=== PATIENT | female | born 1955 | race Caucasian/White ===

== ENCOUNTER 2017-09-04 11:33 | Day surgery (SDC) | payer OTHER ==
[2017-09-04] MEDS ORDERED: Lactated Ringers 1,000 ML IV SCH (12:45)
--- NOTE | 2017-09-04 13:12 | PCM.PREANE ---
Preanesthetic Assessment - Anesthesia/Transfusion/Family Hx Anesthesia History: Prior Anesthesia Reaction Other Type of Anesthesia Reaction Comment: "Coded" during back surgery Family History of Anesthesia Reaction: No Transfusion History: Prior Transfusion Without Reaction Intubation History: Unknown - Review of Systems General: No Symptoms Pulmonary: No Symptoms Cardiovascular: No Symptoms Gastrointestinal: No Symptoms, Other (colon polyps on colonoscopy 3 years ago) Neurological: No Symptoms Other: Reports: None - Physical Assessment O2 Sat by Pulse Oximetry: 98 Respiratory Rate: 16 Vital Signs: Last Vital Signs Temp 36.6 C 09/04/17 12:41 Pulse 67 09/04/17 12:41 Resp 16 09/04/17 12:41 BP 124/60 09/04/17 12:41 Pulse Ox 98 09/04/17 12:41 Height: 1.65 m Weight: 69.4 kg ASA Class: 2 Mental Status: Alert & Oriented x3 Airway Class: Mallampati = 2 Dentition: Reports: Normal Dentition, Partial (upper- removed) Thyro-Mental Finger Breadths: 3 Mouth Opening Finger Breadths: 3 ROM/Head Extension: Full Lungs: Clear to Auscultation, Normal Respiratory Effort Cardiovascular: Regular Rate, Regular Rhythm - Allergies Allergies/Adverse Reactions: Allergies Allergy/AdvReac Type Severity Reaction Status Date / Time cephalexin monohydrate Allergy Itching Verified 08/30/17 14:17 [From Keflex] hydrocodone Allergy Hallucinati Verified 08/30/17 14:17 ons - Blood Blood Available: No - Anesthesia Plan Pre-Op Medication Ordered: None - Acknowledgements Anesthesia Type Planned: MAC Pt an Appropriate Candidate for the Planned Anesthesia: Yes Alternatives and Risks of Anesthesia Discussed w Pt/Guardian: Yes Pt/Guardian Understands and Agrees with Anesthesia Plan: Yes PreAnesthesia Questionnaire Other HEENT History: wears glasses, has upper denture Cardiovascular History: Reports: Hypertension, Prior Cardiac Arrest Other Cardiovascular History: states cardiac arrest during back surgery, no explanation given as to cause Respiratory History: Reports: COPD (mild/moderate), Sleep Apnea Other Respiratory History: has not used CPAP recently Gastrointestinal History: Reports: Colon Polyp, GERD (with esophagitis) Other Gastrointestinal History: Gastrorrhaphy for perforation of ulcer Musculoskeletal History: Reports: Arthritis, Back Pain, Chronic Other Musculoskeletal History: Low back pain Neurological History: Reports: Other (See Below) Other Neuro History: restless leg syndrome Hematologic History: Reports: Anemia, Blood Transfusion(s) Other Hematologic History: had blood transfusion last January for low Hgb - Past Surgical History HEENT Surgical History: Reports: Tonsillectomy GI Surgical History: Reports: Bariatric Procedure, Cholecystectomy, Colonoscopy (x3), Other (See Below) Other GI Surgeries/Procedures: Gastorrhaphy for perforated ulcer Neurological Surgical History: Reports: Lumbar Spine Other Neurological Surgeries/Procedures: had insertion of spinal cord stimulator , was removed during "back surgery"...wires remain Musculoskeletal Surgical History: Reports: Carpal Tunnel - SUBSTANCE USE Smoking Status *Q: Current Every Day Smoker (5-6 cigarettes per day) Tobacco Use Within Last Twelve Months: Cigarettes Days Per Week of Alcohol Use: 7 Number of Drinks Per Day: 1 Total Drinks Per Week: 7 Recreational Drug Use History: No - HOME MEDS Home Medications: Home Meds Folic Acid/Vitamin B Comp W-C [Folbee Plus] 1 tab PO DAILY 03/04/15 [History] Pantoprazole Sodium 1 tab PO DAILY 03/04/15 [History] Albuterol Sulfate [Proair Hfa] 1 - 2 puff INH ASDIRECTED PRN 08/30/17 [History] Amitriptyline HCl 50 mg PO DAILY 08/30/17 [History] Calcium Carbonate/Vitamin D3 [Calcium 500 + Vit D Caplet] 1 tab PO DAILY [History] Fluticasone/Salmeterol [Advair 250-50 Diskus] 1 puff INH BID 08/30/17 [History] Losartan/Hydrochlorothiazide [Losartan-HCTZ 100-12.5 MG] 1 tab PO DAILY [History] - CURRENT (IN HOUSE) MEDS Current Meds: Current Medications Lactated Ringer's (Ringers, Lactated) 1,000 mls @ 125 mls/hr IV ASDIRECTED CARLO Last Admin: 09/04/17 12:49 Dose: 125 mls/hr
[2017-09-04] MEDS ORDERED: Propofol 200 MG/20 ML SDV ONE ×2 (13:40→14:12)
[2017-09-04] MEDS ORDERED: Lidocaine 2% 5 ML SDV ONE (13:40)
[2017-09-04] MEDS ORDERED: fentaNYL 100 MCG/2 ML SDV ONE (13:41)
[2017-09-04] MEDS ORDERED: Midazolam 1 MG/ML 2 ML SDV ONE (13:41)
--- NOTE | 2017-09-04 14:39 | PCM.OPNOTE ---
- General Post-Op/Procedure Note Date of Surgery/Procedure: 09/04/17 Operative Procedure(s): Diagnostic colonoscopy Findings: Mass in the ascending colon proximal to hepatic flexure at 110cm. Encompassed 1/ 4 of lumen and appeared to be invading the mucosa. Too large to safely remove so biopsies taken. Small hepatic flexure and sigmoid colon polyp. ~4mm mass in mid transverse colon Pre Op Diagnosis: History of tubulovillous adenoma Post-Op Diagnosis: Ascending colon mass, transverse colon polyp, sigmoid colon polyp, and hepatic flexure polyp Anesthesia Technique: [facility] [place] Primary Surgeon: Linda Amezquita Condition: Good
[2017-09-04 15:01] VITALS: BP 131/70
--- NOTE | 2017-09-04 15:48 | PCM.POSTAN ---
POST ANESTHESIA ASSESSMENT - MENTAL STATUS Mental Status: Alert, Oriented - RESPIRATORY Respiratory Status: Respiratory Rate WNL, Airway Patent, O2 Saturation Stable - CARDIOVASCULAR CV Status: Pulse Rate WNL, Blood Pressure Stable - GASTROINTESTINAL GI Status: No Symptoms - POST OP HYDRATION Hydration Status: Adequate & Stable
--- NOTE | 2017-09-04 15:48 | PCM48HPAN ---
Post Anesthesia Note - EVALUATION WITHIN 48HRS OF ANESTHETIC Vital Signs in Normal Range: Yes Patient Participated in Evaluation: Yes Respiratory Function Stable: Yes Airway Patent: Yes Cardiovascular Function Stable: Yes Hydration Status Stable: Yes Pain Control Satisfactory: Yes Nausea and Vomiting Control Satisfactory: Yes Mental Status Recovered: Yes
--- NOTE | 2017-09-04 20:47 | OR ---
SURGEON: MATEUS PARKER MD DATE OF PROCEDURE: 09/04/2017 PREOPERATIVE DIAGNOSIS: History of colon polyps. POSTOPERATIVE DIAGNOSES: 1. Transverse colon polyp. 2. Sigmoid colon polyp. 3. Hepatic flexure polyp. 4. Ascending colon mass. 5. Diverticulosis. PROCEDURE PERFORMED: Diagnostic colonoscopy. ANESTHESIA: MAC. INSTRUMENT USED: Olympus colonoscope. EXTENT OF EXAM: To the cecum. PREPARATION: Good. LIMITATIONS: None. INDICATION FOR EXAMINATION: The patient is a 62-year-old female, who underwent a colonoscopy 3 years ago and was found to have a tubulovillous adenoma in the ascending portion of her colon. She is due for a repeat colonoscopy. The patient and I discussed the procedure as well as expected perioperative course. We discussed the risks, including bleeding, infection, or damage to surrounding structures, including perforation. The patient verbalized understanding and wishes to proceed. PROCEDURE IN DETAIL: The patient was brought into the endoscopy suite and placed in the left lateral decubitus position. A time-out was completed verifying the patient's name, age, date of , allergies, and procedure to be performed. Monitored anesthesia care was induced and continuous oxygen was provided via nasal cannula throughout the procedure. After adequate sedation was achieved, a digital rectal exam was performed. This exam was within normal limits. A well lubricated colonoscope was inserted into the rectum and advanced under direct visualization to the level of cecum. The cecum was identified by both visual and anatomic landmarks. A photograph was taken of the cecal cap as well as with the scope retroflexed within the cecum. The scope was then straightened out and fully withdrawn while examining the color, texture, anatomy, and integrity of the mucosa from the cecum to the anal canal. The patient was found to have an irregular sessile mass in the distal ascending colon, proximal to the splenic flexure. The mass encompassed about a quarter of the lumen and I did not feel I could safely remove it. Biopsies were taken and sent labeled as ascending colon mass. The mass was at 110 cm via the scope. The mass was then inked to allow identification for the future. The patient was also found to have a 1 mm polyp at the hepatic flexure and approximately 4 mm polyp in the midtransverse colon and another 1-2 mm polyp in the sigmoid colon. These were removed using a cold biopsy forceps. The patient was noted to have diverticulosis in the distal aspect of her colon. The scope was then brought into the rectum and retroflexed to allow visualization of the anal canal opening. This appeared normal and a photograph was taken. The scope was then straightened out and fully withdrawn. The cecum to anus time was greater than 6 minutes. The patient tolerated procedure well and was taken to PACU in stable condition. ENDOSCOPIC DIAGNOSES: 1. Transverse colon polyp. 2. Hepatic flexure polyp. 3. Sigmoid colon polyp. 4. Ascending colon mass. 5. Diverticulosis. RECOMMENDATIONS: We will get a CEA in the PACU. We will follow up on the biopsy results. If this is a large tubulovillous adenoma, I will send the patient to Dr. Palacios in [place] for consultation. If this is the cancer, we will begin staging and workup. MELISSA ARTHUR /[id number]
== END 2017-09-04 15:15 | disposition home or self-care (01) ==
LOC: MW.SDS 11:33
PROVIDERS: ATTEND Surgery
DX: Z12.11 Encounter for screening for malignant neoplasm of colon (principal); K57.30 Diverticulosis of large intestine without perforation or abscess without bleeding; D12.2 Benign neoplasm of ascending colon; D12.3 Benign neoplasm of transverse colon; D12.5 Benign neoplasm of sigmoid colon; R05 Cough; R07.9 Chest pain, unspecified; M54.31 Sciatica, right side; J44.9 Chronic obstructive pulmonary disease, unspecified; K21.9 Gastro-esophageal reflux disease without esophagitis; I10 Essential (primary) hypertension; G89.29 Other chronic pain; G47.01 Insomnia due to medical condition; D50.9 Iron deficiency anemia, unspecified; G25.81 Restless legs syndrome; G47.30 Sleep apnea, unspecified; M19.90 Unspecified osteoarthritis, unspecified site; F17.210 Nicotine dependence, cigarettes, uncomplicated; Z86.010 Personal history of colon polyps; Z98.84 Bariatric surgery status; Z88.6 Allergy status to analgesic agent; Z88.8 Allergy status to other drugs, medicaments and biological substances; Z79.899 Other long term (current) drug therapy; Z90.49 Acquired absence of other specified parts of digestive tract; Z90.89 Acquired absence of other organs; Z98.890 Other specified postprocedural states
CPT/HCPCS: 36415; 45378; 82378; 88305; J2250; J3010; J7120; 00810; J2704

== ENCOUNTER 2019-04-08 09:48 | Observation (INO) | payer OTHER ==
[2019-04-08] MEDS ORDERED: Aspirin 81 MG Tab.Chew PO ONE (09:54)
--- NOTE | 2019-04-08 10:31 | EDM.PDOC ---
ED HPI GENERAL MEDICAL PROBLEM - General Chief Complaint: Cardiovascular Problem Stated Complaint: CHEST PAIN AND PAIN IN LT ARM Time Seen by Provider: 04/08/19 10:20 - History of Present Illness INITIAL COMMENTS - FREE TEXT/NARRATIVE: 63 y/o female here from Dr. Armendariz's clinic. Patient states that for the past 1 week she has been having some left chest pain and left shoulder pain. pain worse with deep inspiration. Describes pain as pleuritic. Some dyspnea. No productive cough. No oxygen at home. She is an active smoker. No fevers, nausea , vomiting. No abdominal pain, dysuria, diarrhea. States she had an angiogram about 6 years ago which was normal at [facility]. left chest, left arm, Pain Score (Numeric/FACES): 7 - Related Data Allergies Allergy/AdvReac Type Severity Reaction Status Date / Time cephalexin monohydrate Allergy Itching Verified 04/08/19 09:52 [From Keflex] hydrocodone Allergy Hallucinati Verified 04/08/19 09:52 ons Home Meds: Home Meds Folic Acid/Vitamin B Comp W-C [Folbee Plus] 1 tab PO DAILY 03/04/15 [History] Pantoprazole Sodium 1 tab PO DAILY 03/04/15 [History] Albuterol Sulfate [Proair Hfa] 1 - 2 puff INH ASDIRECTED PRN 08/30/17 [History] Calcium Carbonate/Vitamin D3 [Calcium 500 + Vit D Caplet] 1 tab PO DAILY [History] Fluticasone/Salmeterol [Advair 250-50 Diskus] 1 puff INH BID 08/30/17 [History] Losartan/Hydrochlorothiazide [Losartan-HCTZ 100-12.5 MG] 1 tab PO DAILY [History] Past Medical History Other HEENT History: wears glasses, has upper denture Cardiovascular History: Reports: Hypertension Other Cardiovascular History: palpitations Respiratory History: Reports: COPD, Sleep Apnea Other Respiratory History: has not used CPAP recently Gastrointestinal History: Reports: Colon Polyp, GERD Other Gastrointestinal History: Gastrorrhaphy for perforation of ulcer Musculoskeletal History: Reports: Arthritis, Back Pain, Chronic Other Musculoskeletal History: Low back pain Neurological History: Reports: Other (See Below) Other Neuro History: restless leg syndrome Hematologic History: Reports: Anemia, Blood Transfusion(s) Other Hematologic History: had blood transfusion last January for low Hgb - Past Surgical History HEENT Surgical History: Reports: Tonsillectomy GI Surgical History: Reports: Bariatric Procedure, Cholecystectomy, Colonoscopy , Other (See Below) Other GI Surgeries/Procedures: Gastorrhaphy for perforated ulcer Neurological Surgical History: Reports: Lumbar Spine Other Neurological Surgeries/Procedures: had insertion of spinal cord stimulator , was removed during "back surgery"...wires remain Musculoskeletal Surgical History: Reports: Carpal Tunnel Social & Family History - Family History Endocrine/Metabolic: Reports: Diabetes, Type I Oncologic: Reports: Lung, Prostate - Tobacco Use Smoking Status *Q: Current Every Day Smoker Years of Tobacco use: 45 Packs/Tins Daily: 0.5 - Recreational Drug Use Recreational Drug Use: No ED ROS GENERAL - Review of Systems Review Of Systems: ROS reveals no pertinent complaints other than HPI. ED EXAM, GENERAL - Physical Exam Exam: See Below General Appearance: Alert, WD/WN, No Apparent Distress, Anxious Respiratory/Chest: No Respiratory Distress, Lungs Clear, Normal Breath Sounds, Chest Non-Tender, Prolonged Expiration. No: Crackles, Rhonchi, Wheezing Cardiovascular: Regular Rate, Rhythm, No Edema, No JVD, No Murmur GI/Abdominal: Normal Bowel Sounds, Soft, Non-Tender Back Exam: Normal Inspection, Full Range of Motion, Other (previous surgical wounds) Neurological: Alert, Oriented Course - Vital Signs Text/Narrative:: troponin X1 negative. Labs unremarkable. Discussed case with Dr. Londono who has accepted the patient as observation. Last Recorded V/S: Last Vital Signs Temp 36.1 C 04/08/19 09:50 Pulse 74 04/08/19 09:50 Resp 18 04/08/19 09:50 BP 139/69 04/08/19 09:50 Pulse Ox 99 04/08/19 09:50 - Orders/Labs/Meds Orders: Active Orders 24 hr Category Date Time Status Admission Status [Patient Status] [ADT] Stat ADT 04/08/19 11:19 Active EKG Documentation Completion [RC] STAT Care 04/08/19 09:54 Active UA RFX HERMELINDO AND CULT IF INDIC [URIN] Stat Lab 04/08/19 10:50 Received Labs: Laboratory Tests 04/08/19 04/08/19 04/08/19 Range/Units 10:00 10:00 10:00 WBC 7.33 (4.0-11.0) K/uL RBC 4.49 (4.30-5.90) M/uL Hgb 13.9 (12.0-16.0) g/dL Hct 41.8 (36.0-46.0) % MCV 93.1 (80.0-98.0) fL MCH 31.0 (27.0-32.0) pg MCHC 33.3 (31.0-37.0) g/dL RDW Std Deviation 52.7 (28.0-62.0) fl RDW Coeff of Syeda 16 H (11.0-15.0) % Plt Count 262 (150-400) K/uL MPV 9.10 (7.40-12.00) fL Neut % (Auto) 54.9 (48.0-80.0) % Lymph % (Auto) 33.6 (16.0-40.0) % Bracken % (Auto) 7.0 (0.0-15.0) % Eos % (Auto) 3.5 (0.0-7.0) % Baso % (Auto) 1.0 (0.0-1.5) % Neut # (Auto) 4.0 (1.4-5.7) K/uL Lymph # (Auto) 2.5 H (0.6-2.4) K/uL Bracken # (Auto) 0.5 (0.0-0.8) K/uL Eos # (Auto) 0.3 (0.0-0.7) K/uL Baso # (Auto) 0.1 (0.0-0.1) K/uL Nucleated RBC % 0.0 /100WBC Nucleated RBCs # 0 K/uL INR 0.96 Sodium 138 (136-145) mmol/L Potassium 3.9 (3.5-5.1) mmol/L Chloride 102 (98-107) mmol/L Carbon Dioxide 26.8 (21.0-32.0) mmol/L BUN 20 H (7.0-18.0) mg/dL Creatinine 0.9 (0.6-1.0) mg/dL Est Cr Clr Drug Dosing 56.82 mL/min Estimated GFR (MDRD) > 60.0 ml/min Glucose 114 H (74-106) mg/dL Calcium 9.6 (8.5-10.1) mg/dL Total Bilirubin 0.3 (0.2-1.0) mg/dL AST 26 (15-37) IU/L ALT 31 (14-63) IU/L Alkaline Phosphatase 114 (46-116) U/L Troponin I < 0.050 (0.000-0.056) ng/mL Total Protein 7.3 (6.4-8.2) g/dL Albumin 4.2 (3.4-5.0) g/dL Globulin 3.1 (2.6-4.0) g/dL Albumin/Globulin Ratio 1.4 (0.9-1.6) Meds: Medications Discontinued Medications Generic Name Dose Route Start Last Admin Trade Name Madelin PRN Reason Stop Dose Admin Aspirin 324 mg 04/08/19 09:54 04/08/19 10:11 Aspirin PO 04/08/19 09:55 324 mg ONETIME ONE Administration Departure - Departure Time of Disposition: 11:23 Disposition: Refer to Observation Clinical Impression: Chest pain Referrals: PCP,Unknown [Primary Care Provider] - Forms: ED Department Discharge - My Orders Last 24 Hours: My Active Orders 04/08/19 11:19 Admission Status [Patient Status] [ADT] Stat - Assessment/Plan Last 24 Hours: My Active Orders 04/08/19 11:19 Admission Status [Patient Status] [ADT] Stat
--- NOTE | 2019-04-08 10:40 | CR ---
EXAMINATION: Portable chest radiograph. HISTORY: Pain. FINDINGS: The trachea is midline. The cardiomediastinal silhouette is within normal limits. No pulmonary infiltrates, effusions or pneumothorax. Osseous structures appear unremarkable. Mild degenerative changes within the shoulders bilaterally. IMPRESSION: No acute cardiopulmonary process.
[2019-04-08 11:06] LABS: CHLORIDE,CL 102 mmol/L (98-107); SODIUM,NA 138 mmol/L (136-145)
--- NOTE | 2019-04-08 11:48 | PCM.HP ---
<Katarina Garcia M - Last Filed: 04/08/19 12:11> H&P History of Present Illness - General Date of Service: 04/08/19 Admit Problem/Dx: Admission Diagnosis/Problem Admission Diagnosis/Problem Chest pain Source of Information: Patient History Limitations: Reports: No Limitations - History of Present Illness Initial Comments - Free Text/Narative: This 63 year old female with pmh of HTN, tobacco abuse, back pain presented to the ED with complaints of L arm and L shoulder pain. She reports this started about 1 week ago. She reports it is painful to move her arm and too take a deep breath. The pain is in her L shoulder as well as upper trapezius muscle. No sweating or shortness of breath. No nausea or vomiting. Around this time she was painting alot and also had a fall, she is unsure how she landed as she reports she was preoccupied wit not falling on her grandchild. She denies fevers , chills or palpitations. She denies abdominal pain, nausea or vomiting. No urinary symptoms and no focal neurologic deficits. She reports she smokes less than 1/2 ppd, social alcohol use and no recreational drug use. She reports she had an angiogram a few years go with Dr Rene and it was clear as well as a stress test with Dr Kaur, which was negative, but was many years ago. In the ED labwork wnl. Troponin negative. EKG SR with no acute ST changes. CXR negative. VS stable. She was given ASA on arrival. She will be admitted for atypical chest pain. left chest, left arm, Pain Score (Numeric/FACES): 7 - Related Data Allergies/Adverse Reactions: Allergies Allergy/AdvReac Type Severity Reaction Status Date / Time cephalexin monohydrate Allergy Itching Verified 04/08/19 09:52 [From Keflex] hydrocodone Allergy Hallucinati Verified 04/08/19 09:52 ons Home Medications: Home Meds Folic Acid/Vitamin B Comp W-C [Folbee Plus] 1 tab PO DAILY 03/04/15 [History] Pantoprazole Sodium 1 tab PO DAILY 03/04/15 [History] Albuterol Sulfate [Proair Hfa] 1 - 2 puff INH ASDIRECTED PRN 08/30/17 [History] Calcium Carbonate/Vitamin D3 [Calcium 500 + Vit D Caplet] 1 tab PO DAILY [History] Fluticasone/Salmeterol [Advair 250-50 Diskus] 1 puff INH BID 08/30/17 [History] Losartan/Hydrochlorothiazide [Losartan-HCTZ 100-12.5 MG] 1 tab PO DAILY [History] Past Medical History Other HEENT History: wears glasses, has upper denture Cardiovascular History: Reports: Hypertension. Denies: Afib, Blood Clots/VTE/ DVT, CAD Other Cardiovascular History: palpitations Respiratory History: Reports: COPD, Sleep Apnea Other Respiratory History: has not used CPAP recently Gastrointestinal History: Reports: Colon Polyp, GERD Other Gastrointestinal History: Gastrography for perforation of ulcer Musculoskeletal History: Reports: Arthritis, Back Pain, Chronic Other Musculoskeletal History: Low back pain Neurological History: Reports: Other (See Below) Other Neuro History: restless leg syndrome Endocrine/Metabolic History: Reports: None. Denies: Diabetes, Type II, Hypothyroidism Hematologic History: Reports: Anemia, Blood Transfusion(s) Other Hematologic History: had blood transfusion last January for low Hgb - Past Surgical History HEENT Surgical History: Reports: Tonsillectomy GI Surgical History: Reports: Bariatric Procedure, Cholecystectomy, Colonoscopy , Other (See Below) Other GI Surgeries/Procedures: Gastorrhaphy for perforated ulcer Neurological Surgical History: Reports: Lumbar Spine Other Neurological Surgeries/Procedures: had insertion of spinal cord stimulator , was removed during "back surgery"...wires remain Musculoskeletal Surgical History: Reports: Carpal Tunnel Social & Family History - Family History Endocrine/Metabolic: Reports: Diabetes, Type I Oncologic: Reports: Lung, Prostate - Tobacco Use Smoking Status *Q: Current Every Day Smoker Years of Tobacco use: 45 Packs/Tins Daily: 0.5 - Alcohol Use Alcohol Use History: No Alcohol Use Frequency: Socially - Recreational Drug Use Recreational Drug Use: No - Living Situation & Occupation Living situation: Reports: Occupation: Employed H&P Review of Systems - Review of Systems: Review Of Systems: See Below General: Reports: No Symptoms. Denies: Fever, Chills, Malaise, Weakness HEENT: Reports: Post Nasal Drip. Denies: Headaches, Sore Throat, Vertigo Pulmonary: Reports: Pleuritic Chest Pain (with deep breath), Cough, Sputum ( clear to yellow). Denies: Shortness of Breath Cardiovascular: Reports: Chest Pain (L lateral chest, just below axilla and L shoulder) Gastrointestinal: Reports: No Symptoms. Denies: Abdominal Pain, Black Stool, Bloody Stool, Nausea, Vomiting Genitourinary: Reports: No Symptoms. Denies: Dysuria, Frequency, Burning, Incontinence, Flank Pain Musculoskeletal: Reports: Shoulder Pain (L shoulder) Skin: Reports: No Symptoms Psychiatric: Reports: No Symptoms Neurological: Reports: No Symptoms Hematologic/Lymphatic: Reports: No Symptoms Immunologic: Reports: No Symptoms Exam - Exam Exam: See Below - Vital Signs Vital Signs: Last Vital Signs Temp 96.9 F 04/08/19 09:50 Pulse 74 04/08/19 09:50 Resp 18 04/08/19 09:50 BP 139/69 04/08/19 09:50 Pulse Ox 99 04/08/19 09:50 Weight: 63.957 kg - Exam General: Alert, Oriented, Cooperative Lungs: Clear to Auscultation, Normal Respiratory Effort Cardiovascular: Regular Rate, Regular Rhythm GI/Abdominal Exam: Normal Bowel Sounds, Soft, Non-Tender Back Exam: Normal Inspection, Full Range of Motion, Other (tenderness to L lateral chest wall, upper trapezius and L shoulder. Tenderness increases with palpation, which is reproducing pain. ) Extremities: Normal Inspection, Normal Range of Motion, Non-Tender, No Pedal Edema Neuro Extensive - Mental Status: Alert, Oriented x3 Neuro Extensive - Motor, Sensory, Reflexes: CN II-XII Intact Psychiatric: Alert, Normal Affect, Normal Mood - Patient Data Lab Results Last 24 hrs: Laboratory Results - last 24 hr 04/08/19 04/08/19 04/08/19 Range/Units 10:00 10:00 10:00 WBC 7.33 (4.0-11.0) K/uL RBC 4.49 (4.30-5.90) M/uL Hgb 13.9 (12.0-16.0) g/dL Hct 41.8 (36.0-46.0) % MCV 93.1 (80.0-98.0) fL MCH 31.0 (27.0-32.0) pg MCHC 33.3 (31.0-37.0) g/dL RDW Std Deviation 52.7 (28.0-62.0) fl RDW Coeff of Syeda 16 H (11.0-15.0) % Plt Count 262 (150-400) K/uL MPV 9.10 (7.40-12.00) fL Neut % (Auto) 54.9 (48.0-80.0) % Lymph % (Auto) 33.6 (16.0-40.0) % [place] % (Auto) 7.0 (0.0-15.0) % Eos % (Auto) 3.5 (0.0-7.0) % Baso % (Auto) 1.0 (0.0-1.5) % Neut # (Auto) 4.0 (1.4-5.7) K/uL Lymph # (Auto) 2.5 H (0.6-2.4) K/uL [place] # (Auto) 0.5 (0.0-0.8) K/uL Eos # (Auto) 0.3 (0.0-0.7) K/uL Baso # (Auto) 0.1 (0.0-0.1) K/uL Nucleated RBC % 0.0 /100WBC Nucleated RBCs # 0 K/uL INR 0.96 Sodium 138 (136-145) mmol/L Potassium 3.9 (3.5-5.1) mmol/L Chloride 102 (98-107) mmol/L Carbon Dioxide 26.8 (21.0-32.0) mmol/L BUN 20 H (7.0-18.0) mg/dL Creatinine 0.9 (0.6-1.0) mg/dL Est Cr Clr Drug Dosing 56.82 mL/min Estimated GFR (MDRD) > 60.0 ml/min Glucose 114 H (74-106) mg/dL Calcium 9.6 (8.5-10.1) mg/dL Total Bilirubin 0.3 (0.2-1.0) mg/dL AST 26 (15-37) IU/L ALT 31 (14-63) IU/L Alkaline Phosphatase 114 (46-116) U/L Troponin I < 0.050 (0.000-0.056) ng/mL Total Protein 7.3 (6.4-8.2) g/dL Albumin 4.2 (3.4-5.0) g/dL Globulin 3.1 (2.6-4.0) g/dL Albumin/Globulin Ratio 1.4 (0.9-1.6) Urine Color Urine Appearance Urine pH (5.0-8.0) Ur Specific [place] (1.001-1.035) Urine Protein (NEGATIVE) mg/dL Urine Glucose (UA) (NEGATIVE) mg/dL Urine Ketones (NEGATIVE) mg/dL Urine Occult Blood (NEGATIVE) Urine Nitrite (NEGATIVE) Urine Bilirubin (NEGATIVE) Urine Urobilinogen (<2.0) EU/dL Ur Leukocyte Esterase (NEGATIVE) Urine RBC (0-2/HPF) Urine WBC (0-5/HPF) Ur Epithelial Cells (NONE-FEW) Urine Bacteria (NEGATIVE) Urine Mucus (NONE-MOD) 04/08/19 Range/Units 10:50 WBC (4.0-11.0) K/uL RBC (4.30-5.90) M/uL Hgb (12.0-16.0) g/dL Hct (36.0-46.0) % MCV (80.0-98.0) fL MCH (27.0-32.0) pg MCHC (31.0-37.0) g/dL RDW Std Deviation (28.0-62.0) fl RDW Coeff of Syeda (11.0-15.0) % Plt Count (150-400) K/uL MPV (7.40-12.00) fL Neut % (Auto) (48.0-80.0) % Lymph % (Auto) (16.0-40.0) % [place] % (Auto) (0.0-15.0) % Eos % (Auto) (0.0-7.0) % Baso % (Auto) (0.0-1.5) % Neut # (Auto) (1.4-5.7) K/uL Lymph # (Auto) (0.6-2.4) K/uL [place] # (Auto) (0.0-0.8) K/uL Eos # (Auto) (0.0-0.7) K/uL Baso # (Auto) (0.0-0.1) K/uL Nucleated RBC % /100WBC Nucleated RBCs # K/uL INR Sodium (136-145) mmol/L Potassium (3.5-5.1) mmol/L Chloride (98-107) mmol/L Carbon Dioxide (21.0-32.0) mmol/L BUN (7.0-18.0) mg/dL Creatinine (0.6-1.0) mg/dL Est Cr Clr Drug Dosing mL/min Estimated GFR (MDRD) ml/min Glucose (74-106) mg/dL Calcium (8.5-10.1) mg/dL Total Bilirubin (0.2-1.0) mg/dL AST (15-37) IU/L ALT (14-63) IU/L Alkaline Phosphatase (46-116) U/L Troponin I (0.000-0.056) ng/mL Total Protein (6.4-8.2) g/dL Albumin (3.4-5.0) g/dL Globulin (2.6-4.0) g/dL Albumin/Globulin Ratio (0.9-1.6) Urine Color YELLOW Urine Appearance SLT CLOUDY Urine pH 6.0 (5.0-8.0) Ur Specific [place] 1.010 (1.001-1.035) Urine Protein NEGATIVE (NEGATIVE) mg/dL Urine Glucose (UA) NEGATIVE (NEGATIVE) mg/dL Urine Ketones NEGATIVE (NEGATIVE) mg/dL Urine Occult Blood NEGATIVE (NEGATIVE) Urine Nitrite NEGATIVE (NEGATIVE) Urine Bilirubin NEGATIVE (NEGATIVE) Urine Urobilinogen 0.2 (<2.0) EU/dL Ur Leukocyte Esterase TRACE H (NEGATIVE) Urine RBC 0-2 (0-2/HPF) Urine WBC 6-8 (0-5/HPF) Ur Epithelial Cells MODERATE (NONE-FEW) Urine Bacteria FEW (NEGATIVE) Urine Mucus LIGHT (NONE-MOD) Result Diagrams: 04/08/19 10:00 04/08/19 10:00 EKG INTERPRETATION Rhythm: NSR P-Wave: Present QRS: Normal ST-T: Normal QT: Normal - Problem List (1) Atypical chest pain SNOMED Code(s): 427295438 ICD Code: R07.89 - OTHER CHEST PAIN Status: Acute Current Visit: Yes (2) Tobacco abuse SNOMED Code(s): 265119921 ICD Code: Z72.0 - TOBACCO USE Status: Chronic Current Visit: Yes (3) HTN (hypertension) SNOMED Code(s): 84506443 ICD Code: I10 - ESSENTIAL (PRIMARY) HYPERTENSION Status: Chronic Current Visit: Yes Qualifiers: Hypertension type: essential hypertension Qualified Code(s): I10 - Essential (primary) hypertension (4) COPD (chronic obstructive pulmonary disease) SNOMED Code(s): 83758375 ICD Code: J44.9 - CHRONIC OBSTRUCTIVE PULMONARY DISEASE, UNSPECIFIED Status : Chronic Current Visit: Yes Problem List Initiated/Reviewed/Updated: Yes Orders Last 24hrs: Active Orders 24 hr Category Date Time Status Admission Status [Patient Status] [ADT] Stat ADT 04/08/19 11:19 Active EKG Documentation Completion [RC] STAT Care 04/08/19 09:54 Active Heart Healthy Diet [DIET] Diet 04/08/19 Dinner Ordered CULTURE URINE [RM] Stat Lab 04/08/19 10:50 Received Assessment/Plan Comment:: This 63 year old female admitted with atypical chest pain 1. Atypical chest pain: Monitor on telemetry. Trend troponins. Check lipid panel and A1c. Pain is reproducible so like musculoskeletal in nature, but with risk factors with rule out ID. Will need outpatient stress test. Tylenol and Tramadol PRN for pain 2. HTN: Stable continue Losartan HCTZ. 3. COPD: Stable, no wheezing or SOB. Continue inhalers VTE prophylaxis: SCDs Dispo: 1 day <Moreno Londono - Last Filed: 04/08/19 13:05> H&P History of Present Illness - General Admit Problem/Dx: Admission Diagnosis/Problem Admission Diagnosis/Problem Chest pain I have examined the patient independently of Katarina Garcia CNP. I have discussed the case with her. I have reviewed and agree with the examination and plan as outlined by her. Please see orders. Exam - Vital Signs Vital Signs: Last Vital Signs Temp 35.9 C 04/08/19 12:02 Pulse 58 L 04/08/19 12:02 Resp 12 04/08/19 12:02 BP 130/79 04/08/19 12:02 Pulse Ox 99 04/08/19 12:02 - Patient Data Lab Results Last 24 hrs: Laboratory Results - last 24 hr 04/08/19 04/08/19 04/08/19 Range/Units 10:00 10:00 10:00 WBC 7.33 (4.0-11.0) K/uL RBC 4.49 (4.30-5.90) M/uL Hgb 13.9 (12.0-16.0) g/dL Hct 41.8 (36.0-46.0) % MCV 93.1 (80.0-98.0) fL MCH 31.0 (27.0-32.0) pg MCHC 33.3 (31.0-37.0) g/dL RDW Std Deviation 52.7 (28.0-62.0) fl RDW Coeff of Syeda 16 H (11.0-15.0) % Plt Count 262 (150-400) K/uL MPV 9.10 (7.40-12.00) fL Neut % (Auto) 54.9 (48.0-80.0) % Lymph % (Auto) 33.6 (16.0-40.0) % [place] % (Auto) 7.0 (0.0-15.0) % Eos % (Auto) 3.5 (0.0-7.0) % Baso % (Auto) 1.0 (0.0-1.5) % Neut # (Auto) 4.0 (1.4-5.7) K/uL Lymph # (Auto) 2.5 H (0.6-2.4) K/uL [place] # (Auto) 0.5 (0.0-0.8) K/uL Eos # (Auto) 0.3 (0.0-0.7) K/uL Baso # (Auto) 0.1 (0.0-0.1) K/uL Nucleated RBC % 0.0 /100WBC Nucleated RBCs # 0 K/uL INR 0.96 Sodium 138 (136-145) mmol/L Potassium 3.9 (3.5-5.1) mmol/L Chloride 102 (98-107) mmol/L Carbon Dioxide 26.8 (21.0-32.0) mmol/L BUN 20 H (7.0-18.0) mg/dL Creatinine 0.9 (0.6-1.0) mg/dL Est Cr Clr Drug Dosing 56.82 mL/min Estimated GFR (MDRD) > 60.0 ml/min Glucose 114 H (74-106) mg/dL Hemoglobin A1c (4.5-6.2) % Calcium 9.6 (8.5-10.1) mg/dL Total Bilirubin 0.3 (0.2-1.0) mg/dL AST 26 (15-37) IU/L ALT 31 (14-63) IU/L Alkaline Phosphatase 114 (46-116) U/L Troponin I < 0.050 (0.000-0.056) ng/mL Total Protein 7.3 (6.4-8.2) g/dL Albumin 4.2 (3.4-5.0) g/dL Globulin 3.1 (2.6-4.0) g/dL Albumin/Globulin Ratio 1.4 (0.9-1.6) Urine Color Urine Appearance Urine pH (5.0-8.0) Ur Specific [place] (1.001-1.035) Urine Protein (NEGATIVE) mg/dL Urine Glucose (UA) (NEGATIVE) mg/dL Urine Ketones (NEGATIVE) mg/dL Urine Occult Blood (NEGATIVE) Urine Nitrite (NEGATIVE) Urine Bilirubin (NEGATIVE) Urine Urobilinogen (<2.0) EU/dL Ur Leukocyte Esterase (NEGATIVE) Urine RBC (0-2/HPF) Urine WBC (0-5/HPF) Ur Epithelial Cells (NONE-FEW) Urine Bacteria (NEGATIVE) Urine Mucus (NONE-MOD) 04/08/19 04/08/19 Range/Units 10:00 10:50 WBC (4.0-11.0) K/uL RBC (4.30-5.90) M/uL Hgb (12.0-16.0) g/dL Hct (36.0-46.0) % MCV (80.0-98.0) fL MCH (27.0-32.0) pg MCHC (31.0-37.0) g/dL RDW Std Deviation (28.0-62.0) fl RDW Coeff of Syeda (11.0-15.0) % Plt Count (150-400) K/uL MPV (7.40-12.00) fL Neut % (Auto) (48.0-80.0) % Lymph % (Auto) (16.0-40.0) % [place] % (Auto) (0.0-15.0) % Eos % (Auto) (0.0-7.0) % Baso % (Auto) (0.0-1.5) % Neut # (Auto) (1.4-5.7) K/uL Lymph # (Auto) (0.6-2.4) K/uL [place] # (Auto) (0.0-0.8) K/uL Eos # (Auto) (0.0-0.7) K/uL Baso # (Auto) (0.0-0.1) K/uL Nucleated RBC % /100WBC Nucleated RBCs # K/uL INR Sodium (136-145) mmol/L Potassium (3.5-5.1) mmol/L Chloride (98-107) mmol/L Carbon Dioxide (21.0-32.0) mmol/L BUN (7.0-18.0) mg/dL Creatinine (0.6-1.0) mg/dL Est Cr Clr Drug Dosing mL/min Estimated GFR (MDRD) ml/min Glucose (74-106) mg/dL Hemoglobin A1c 6.4 H (4.5-6.2) % Calcium (8.5-10.1) mg/dL Total Bilirubin (0.2-1.0) mg/dL AST (15-37) IU/L ALT (14-63) IU/L Alkaline Phosphatase (46-116) U/L Troponin I (0.000-0.056) ng/mL Total Protein (6.4-8.2) g/dL Albumin (3.4-5.0) g/dL Globulin (2.6-4.0) g/dL Albumin/Globulin Ratio (0.9-1.6) Urine Color YELLOW Urine Appearance SLT CLOUDY Urine pH 6.0 (5.0-8.0) Ur Specific [place] 1.010 (1.001-1.035) Urine Protein NEGATIVE (NEGATIVE) mg/dL Urine Glucose (UA) NEGATIVE (NEGATIVE) mg/dL Urine Ketones NEGATIVE (NEGATIVE) mg/dL Urine Occult Blood NEGATIVE (NEGATIVE) Urine Nitrite NEGATIVE (NEGATIVE) Urine Bilirubin NEGATIVE (NEGATIVE) Urine Urobilinogen 0.2 (<2.0) EU/dL Ur Leukocyte Esterase TRACE H (NEGATIVE) Urine RBC 0-2 (0-2/HPF) Urine WBC 6-8 (0-5/HPF) Ur Epithelial Cells MODERATE (NONE-FEW) Urine Bacteria FEW (NEGATIVE) Urine Mucus LIGHT (NONE-MOD) Result Diagrams: 04/08/19 10:00 04/08/19 10:00 Orders Last 24hrs: Active Orders 24 hr Category Date Time Status Admission Status [Patient Status] [ADT] Stat ADT 04/08/19 11:19 Active Antiembolic Devices [RC] PER UNIT ROUTINE Care 04/08/19 12:08 Active EKG Documentation Completion [RC] STAT Care 04/08/19 09:54 Active Intake and Output [RC] Q12H Care 04/08/19 12:07 Active Oxygen Therapy [RC] PRN Care 04/08/19 12:07 Active Telemetry Monitoring [Cardiac Monitoring] [RC] . Care 04/08/19 12:11 Active DIRECTED Up ad Sariah [RC] ASDIRECTED Care 04/08/19 12:07 Active VTE/DVT Education [RC] PER UNIT ROUTINE Care 04/08/19 12:07 Active Vital Signs [RC] Q4H Care 04/08/19 12:07 Active Heart Healthy Diet [DIET] Diet 04/08/19 Dinner Active CULTURE URINE [RM] Stat Lab 04/08/19 10:50 Received LIPID PANEL [CHEM] AM Lab 04/09/19 05:11 Ordered TROPONIN I [CHEM] Q6H Lab 04/08/19 16:00 Ordered TROPONIN I [CHEM] Q6H Lab 04/08/19 22:00 Ordered Acetaminophen [Tylenol] Med 04/08/19 12:07 Active 650 mg PO Q4H PRN Albuterol [Ventolin HFA] Med 04/08/19 12:09 Active 0 gm INH Q4H PRN Calcium Citrate/Vitamin D3 [Calcitrate + Vit D Cap (315 Med 04/09/19 09:00 Active MG/250 UNITS)] 1 each PO DAILY Fluticasone/Salmeterol [Advair Diskus 250-50] Med 04/08/19 21:00 Active 1 puff INH BID Hydrochlorothiazide/Losartan [Hyzaar 50-12.5 MG] Med 04/09/19 09:00 Active 1 tab PO DAILY Losartan [Cozaar] Med 04/09/19 09:00 Active 50 mg PO DAILY Morphine Med 04/08/19 12:07 Active 2 mg IVPUSH Q2H PRN Ondansetron [Zofran] Med 04/08/19 12:07 Active 4 mg IVPUSH Q4H PRN Pantoprazole [ProTONIX] Med 04/09/19 09:00 Active 40 mg PO DAILY Patient's Own Medication [Ptom] Med 04/09/19 09:00 Active 1 each PO DAILY Sodium Chloride 0.9% [Saline Flush] Med 04/08/19 12:07 Active 2.5 ml FLUSH ASDIRECTED PRN traMADol [Ultram] Med 04/08/19 12:07 Active 50 mg PO Q4H PRN Heat Therapy [OM.PC] Routine Oth 04/08/19 12:07 Ordered Ice Therapy [OM.PC] Routine Oth 04/08/19 12:07 Ordered Saline Lock Insert [OM.PC] Routine Oth 04/08/19 12:07 Ordered Sequential Compression Device [OM.PC] Per Unit Routine Oth 04/08/19 12:07 Ordered Resuscitation Status Routine Resus Stat 04/08/19 12:07 Ordered Medication Orders Acetaminophen (Tylenol) 650 mg PO Q4H PRN PRN Reason: Pain (Mild 1-3)/fever Albuterol (Ventolin Hfa) 0 gm INH Q4H PRN PRN Reason: Shortness of Breath Calcium Citrate (Calcitrate + Vit D Cap (315 Mg/250 Units)) 1 each PO DAILY CARLO HCTZ/Losartan Potassium (Hyzaar 50-12.5 Mg) 1 tab PO DAILY CARLO Losartan Potassium (Cozaar) 50 mg PO DAILY CARLO Morphine Sulfate (Morphine) 2 mg IVPUSH Q2H PRN PRN Reason: Pain (severe 7-10) Stop: 04/09/19 12:07 Ondansetron HCl (Zofran) 4 mg IVPUSH Q4H PRN PRN Reason: Nausea Pantoprazole Sodium (Protonix) 40 mg PO DAILY [facility] [place] Plus 1 each PO DAILY CARLO Fluticasone/Salmeterol (Advair Diskus 250-50) 1 puff INH BID CARLO Sodium Chloride (Saline Flush) 2.5 ml FLUSH ASDIRECTED PRN PRN Reason: Keep Vein Open Tramadol HCl (Ultram) 50 mg PO Q4H PRN PRN Reason: Pain
[2019-04-08] MEDS ORDERED: Sodium Chloride 0.9% 2.5 ML Syringe FLUSH PRN (12:07)
[2019-04-08] MEDS ORDERED: Ondansetron 4 MG/2 ML SDV IVPUSH PRN (12:07)
[2019-04-08] MEDS ORDERED: Morphine 2 MG/ML Syringe IVPUSH PRN (12:07)
[2019-04-08] MEDS ORDERED: Albuterol 8 GM Inhaler INH PRN (12:09)
[2019-04-08 12:28] LABS: HEMOGLOBIN A1C 6.4 % (4.5-6.2)
[2019-04-08] MEDS: Acetaminophen 325 MG Tab PO PRN ×2 (13:10→22:44)
[2019-04-08] MEDS: traMADol 50 MG Tab PO PRN ×2 (17:09→21:19)
[2019-04-08] MEDS: Fluticasone/Salmeterol 250-50 MCG Inhalation Powder 14/Diskus INH SCH (22:45)
[2019-04-09] MEDS: traMADol 50 MG Tab PO PRN ×2 (02:38→08:19)
[2019-04-09] MEDS: Fluticasone/Salmeterol 250-50 MCG Inhalation Powder 14/Diskus INH SCH (08:26)
[2019-04-09 08:28] VITALS: BP 126/66
[2019-04-09] MEDS ORDERED: Calcium Citrate/Vitamin D3 Tablet PO SCH (09:00)
[2019-04-09] MEDS ORDERED: FOLBEE PLUS PO SCH (09:00)
[2019-04-09] MEDS ORDERED: Hydrochlorothiazide/Losartan 12.5-50 mg Tab PO SCH (09:00)
[2019-04-09] MEDS ORDERED: Losartan 50 MG Tab PO SCH (09:00)
[2019-04-09] MEDS ORDERED: Pantoprazole 40 MG Tab.CR PO SCH (09:00)
--- NOTE | 2019-04-09 09:00 | PCM.DCSUM1 ---
<Katarina Garcia M - Last Filed: 04/09/19 11:12> Discharge Summary - Hospital Course Brief History: This 63 year old female with pmh of HTN, tobacco abuse, back pain presented to the ED with complaints of L arm and L shoulder pain. She reports this started about 1 week ago. She reports it is painful to move her arm and too take a deep breath. The pain is in her L shoulder as well as upper trapezius muscle. No sweating or shortness of breath. No nausea or vomiting. Around this time she was painting alot and also had a fall, she is unsure how she landed as she reports she was preoccupied wit not falling on her grandchild. She denies fevers, chills or palpitations. She denies abdominal pain , nausea or vomiting. No urinary symptoms and no focal neurologic deficits. She reports she smokes less than 1/2 ppd, social alcohol use and no recreational drug use. She reports she had an angiogram a few years go with Dr Rene and it was clear as well as a stress test with Dr Kaur, which was negative, but was many years ago. In the ED labwork wnl. Troponin negative. EKG SR with no acute ST changes. CXR negative. VS stable. She was given ASA on arrival. She will be admitted for atypical chest pain. Diagnosis: Stroke: No - Discharge Data Discharge Date: 04/09/19 Discharge Disposition: Home, Self-Care 01 Condition: Stable - Discharge Diagnosis/Problem(s) (1) Atypical chest pain SNOMED Code(s): 025807339 ICD Code: R07.89 - OTHER CHEST PAIN Status: Acute (2) Tobacco abuse SNOMED Code(s): 183697302 ICD Code: Z72.0 - TOBACCO USE Status: Chronic (3) HTN (hypertension) SNOMED Code(s): 21310066 ICD Code: I10 - ESSENTIAL (PRIMARY) HYPERTENSION Status: Chronic Qualifiers: Hypertension type: essential hypertension Qualified Code(s): I10 - Essential (primary) hypertension (4) COPD (chronic obstructive pulmonary disease) SNOMED Code(s): 67912061 ICD Code: J44.9 - CHRONIC OBSTRUCTIVE PULMONARY DISEASE, UNSPECIFIED Status : Chronic - Patient Instructions Diet: Heart Healthy Diet, Regular Diet as Tolerated Activity: As Tolerated Showering/Bathing: May Shower Notify Provider of: Fever, Increased Pain, Swelling and Redness, Drainage, Nausea and/or Vomiting Other/Special Instructions: Heat and ICE to L shoulder and back. - Discharge Plan *PRESCRIPTION DRUG MONITORING PROGRAM REVIEWED*: Not Applicable *COPY OF PRESCRIPTION DRUG MONITORING REPORT IN PATIENT ION: Not Applicable Prescriptions/Med Rec: traMADol [Ultram] 50 mg PO Q4H PRN #10 tablet PRN Reason: Pain Home Medications: Home Meds Folic Acid/Vitamin B Comp W-C [Folbee Plus] 1 tab PO DAILY 03/04/15 [History] Pantoprazole Sodium 1 tab PO DAILY 03/04/15 [History] Albuterol Sulfate [Proair Hfa] 1 - 2 puff INH ASDIRECTED PRN 08/30/17 [History] Calcium Carbonate/Vitamin D3 [Calcium 500 + Vit D Caplet] 1 tab PO DAILY [History] Fluticasone/Salmeterol [Advair 250-50 Diskus] 1 puff INH BID 08/30/17 [History] Losartan/Hydrochlorothiazide [Losartan-HCTZ 100-12.5 MG] 1 tab PO DAILY [History] traMADol [Ultram] 50 mg PO Q4H PRN #10 tablet 04/09/19 [Rx] Oxygen Therapy Mode: Room Air Patient Handouts: Tramadol tablets, Nonspecific Chest Pain, [id number] Referrals: [facility] [Outside] Lena Armendariz MD [Primary Care Provider] - 04/16/19 8:30 am (Please come in the clinic at 0815. ) - Discharge Summary/Plan Comment DC Time >30 min.: No Discharge Summary/Plan Comment: Admitting Diagnoses: Atypical chest pain/ L shoulder pain Discharge Diagnoses: Musculoskeletal strain to L shoulder and upper trapezius Borderline DM type 2 Other PMH: HTN Tobacco Use Archana was admitted and monitored for atypical chest pain due to risk factors for CAD. She has reproducible pain to L lateral rib cage and L upper trapezius. Troponins remains negative overnight, with no EKG changes. Lipid panel WNL. A1c elevated 6.4 She was counseled on improving diet and monitoring carbs and sweets along with increase activity levels. She will be sent home with Tramadol 10 tabs for acute pain to L shoulder and back. Heat and ICE. She is to return to clinic or ED if concerns should arise. She will be scheduled for stress test though pain is likely related to musculoskeletal concerns. Follow up with PCP in 1 week. - General Info Date of Service: 04/09/19 Admission Dx/Problem (Free Text: Admission Diagnosis/Problem Admission Diagnosis/Problem Chest pain Subjective Update: Doing well this morning, Continues to have L shoulder and upper back pain. heat and Ice are helping. Tramadol helped last night as well. Requesting discharge home. - Review of Systems HEENT: Reports: No Symptoms Pulmonary: Reports: No Symptoms. Denies: Shortness of Breath Cardiovascular: Reports: No Symptoms. Denies: Chest Pain Gastrointestinal: Reports: No Symptoms. Denies: Abdominal Pain, Nausea, Vomiting Genitourinary: Reports: No Symptoms. Denies: Dysuria, Frequency, Burning Musculoskeletal: Reports: Shoulder Pain, Back Pain (upper back L trap) Skin: Reports: No Symptoms Neurological: Reports: No Symptoms Psychiatric: Reports: No Symptoms - Patient Data Vitals - Most Recent: Last Vital Signs Temp 97.4 F 04/09/19 07:33 Pulse 56 L 04/09/19 07:33 Resp 14 04/09/19 04:00 BP 126/66 04/09/19 08:27 Pulse Ox 92 L 04/09/19 07:33 Weight - Most Recent: 63.957 kg I&O - Last 24 hours: Intake & Output 04/08/19 04/09/19 04/09/19 22:59 06:59 14:59 Intake Total 200 700 Output Total 0 800 Balance 200 -100 Lab Results - Last 24 hrs: Laboratory Results - last 24 hr 04/08/19 04/08/19 04/08/19 Range/Units 10:00 10:00 10:00 WBC 7.33 (4.0-11.0) K/uL RBC 4.49 (4.30-5.90) M/uL Hgb 13.9 (12.0-16.0) g/dL Hct 41.8 (36.0-46.0) % MCV 93.1 (80.0-98.0) fL MCH 31.0 (27.0-32.0) pg MCHC 33.3 (31.0-37.0) g/dL RDW Std Deviation 52.7 (28.0-62.0) fl RDW Coeff of Syeda 16 H (11.0-15.0) % Plt Count 262 (150-400) K/uL MPV 9.10 (7.40-12.00) fL Neut % (Auto) 54.9 (48.0-80.0) % Lymph % (Auto) 33.6 (16.0-40.0) % [place] % (Auto) 7.0 (0.0-15.0) % Eos % (Auto) 3.5 (0.0-7.0) % Baso % (Auto) 1.0 (0.0-1.5) % Neut # (Auto) 4.0 (1.4-5.7) K/uL Lymph # (Auto) 2.5 H (0.6-2.4) K/uL [place] # (Auto) 0.5 (0.0-0.8) K/uL Eos # (Auto) 0.3 (0.0-0.7) K/uL Baso # (Auto) 0.1 (0.0-0.1) K/uL Nucleated RBC % 0.0 /100WBC Nucleated RBCs # 0 K/uL INR 0.96 Sodium 138 (136-145) mmol/L Potassium 3.9 (3.5-5.1) mmol/L Chloride 102 (98-107) mmol/L Carbon Dioxide 26.8 (21.0-32.0) mmol/L BUN 20 H (7.0-18.0) mg/dL Creatinine 0.9 (0.6-1.0) mg/dL Est Cr Clr Drug Dosing 56.82 mL/min Estimated GFR (MDRD) > 60.0 ml/min Glucose 114 H (74-106) mg/dL Hemoglobin A1c (4.5-6.2) % Calcium 9.6 (8.5-10.1) mg/dL Total Bilirubin 0.3 (0.2-1.0) mg/dL AST 26 (15-37) IU/L ALT 31 (14-63) IU/L Alkaline Phosphatase 114 (46-116) U/L Troponin I < 0.050 (0.000-0.056) ng/mL Total Protein 7.3 (6.4-8.2) g/dL Albumin 4.2 (3.4-5.0) g/dL Globulin 3.1 (2.6-4.0) g/dL Albumin/Globulin Ratio 1.4 (0.9-1.6) Triglycerides (0-200) mg/dL Cholesterol (50-200) mg/dL LDL Cholesterol, Calc (60-180) mg/dL VLDL Cholesterol (5-55) mg/dL HDL Cholesterol (40-60) mg/dL Cholesterol/HDL Ratio (3.3-6.0) Urine Color Urine Appearance Urine pH (5.0-8.0) Ur Specific [place] (1.001-1.035) Urine Protein (NEGATIVE) mg/dL Urine Glucose (UA) (NEGATIVE) mg/dL Urine Ketones (NEGATIVE) mg/dL Urine Occult Blood (NEGATIVE) Urine Nitrite (NEGATIVE) Urine Bilirubin (NEGATIVE) Urine Urobilinogen (<2.0) EU/dL Ur Leukocyte Esterase (NEGATIVE) Urine RBC (0-2/HPF) Urine WBC (0-5/HPF) Ur Epithelial Cells (NONE-FEW) Urine Bacteria (NEGATIVE) Urine Mucus (NONE-MOD) 04/08/19 04/08/19 04/08/19 Range/Units 10:00 10:50 16:14 WBC (4.0-11.0) K/uL RBC (4.30-5.90) M/uL Hgb (12.0-16.0) g/dL Hct (36.0-46.0) % MCV (80.0-98.0) fL MCH (27.0-32.0) pg MCHC (31.0-37.0) g/dL RDW Std Deviation (28.0-62.0) fl RDW Coeff of [place]eda (11.0-15.0) % Plt Count (150-400) K/uL MPV (7.40-12.00) fL Neut % (Auto) (48.0-80.0) % Lymph % (Auto) (16.0-40.0) % [place] % (Auto) (0.0-15.0) % Eos % (Auto) (0.0-7.0) % Baso % (Auto) (0.0-1.5) % Neut # (Auto) (1.4-5.7) K/uL Lymph # (Auto) (0.6-2.4) K/uL [place] # (Auto) (0.0-0.8) K/uL Eos # (Auto) (0.0-0.7) K/uL Baso # (Auto) (0.0-0.1) K/uL Nucleated RBC % /100WBC Nucleated RBCs # K/uL INR Sodium (136-145) mmol/L Potassium (3.5-5.1) mmol/L Chloride (98-107) mmol/L Carbon Dioxide (21.0-32.0) mmol/L BUN (7.0-18.0) mg/dL Creatinine (0.6-1.0) mg/dL Est Cr Clr Drug Dosing mL/min Estimated GFR (MDRD) ml/min Glucose (74-106) mg/dL Hemoglobin A1c 6.4 H (4.5-6.2) % Calcium (8.5-10.1) mg/dL Total Bilirubin (0.2-1.0) mg/dL AST (15-37) IU/L ALT (14-63) IU/L Alkaline Phosphatase (46-116) U/L Troponin I < 0.050 (0.000-0.056) ng/mL Total Protein (6.4-8.2) g/dL Albumin (3.4-5.0) g/dL Globulin (2.6-4.0) g/dL Albumin/Globulin Ratio (0.9-1.6) Triglycerides (0-200) mg/dL Cholesterol (50-200) mg/dL LDL Cholesterol, Calc (60-180) mg/dL VLDL Cholesterol (5-55) mg/dL HDL Cholesterol (40-60) mg/dL Cholesterol/HDL Ratio (3.3-6.0) Urine Color YELLOW Urine Appearance SLT CLOUDY Urine pH 6.0 (5.0-8.0) Ur Specific [place] 1.010 (1.001-1.035) Urine Protein NEGATIVE (NEGATIVE) mg/dL Urine Glucose (UA) NEGATIVE (NEGATIVE) mg/dL Urine Ketones NEGATIVE (NEGATIVE) mg/dL Urine Occult Blood NEGATIVE (NEGATIVE) Urine Nitrite NEGATIVE (NEGATIVE) Urine Bilirubin NEGATIVE (NEGATIVE) Urine Urobilinogen 0.2 (<2.0) EU/dL Ur Leukocyte Esterase TRACE H (NEGATIVE) Urine RBC 0-2 (0-2/HPF) Urine WBC 6-8 (0-5/HPF) Ur Epithelial Cells MODERATE (NONE-FEW) Urine Bacteria FEW (NEGATIVE) Urine Mucus LIGHT (NONE-MOD) 04/08/19 04/09/19 Range/Units 22:14 05:18 WBC (4.0-11.0) K/uL RBC (4.30-5.90) M/uL Hgb (12.0-16.0) g/dL Hct (36.0-46.0) % MCV (80.0-98.0) fL MCH (27.0-32.0) pg MCHC (31.0-37.0) g/dL RDW Std Deviation (28.0-62.0) fl RDW Coeff of Syeda (11.0-15.0) % Plt Count (150-400) K/uL MPV (7.40-12.00) fL Neut % (Auto) (48.0-80.0) % Lymph % (Auto) (16.0-40.0) % [place] % (Auto) (0.0-15.0) % Eos % (Auto) (0.0-7.0) % Baso % (Auto) (0.0-1.5) % Neut # (Auto) (1.4-5.7) K/uL Lymph # (Auto) (0.6-2.4) K/uL [place] # (Auto) (0.0-0.8) K/uL Eos # (Auto) (0.0-0.7) K/uL Baso # (Auto) (0.0-0.1) K/uL Nucleated RBC % /100WBC Nucleated RBCs # K/uL INR Sodium (136-145) mmol/L Potassium (3.5-5.1) mmol/L Chloride (98-107) mmol/L Carbon Dioxide (21.0-32.0) mmol/L BUN (7.0-18.0) mg/dL Creatinine (0.6-1.0) mg/dL Est Cr Clr Drug Dosing mL/min Estimated GFR (MDRD) ml/min Glucose (74-106) mg/dL Hemoglobin A1c (4.5-6.2) % Calcium (8.5-10.1) mg/dL Total Bilirubin (0.2-1.0) mg/dL AST (15-37) IU/L ALT (14-63) IU/L Alkaline Phosphatase (46-116) U/L Troponin I < 0.050 (0.000-0.056) ng/mL Total Protein (6.4-8.2) g/dL Albumin (3.4-5.0) g/dL Globulin (2.6-4.0) g/dL Albumin/Globulin Ratio (0.9-1.6) Triglycerides 67 (0-200) mg/dL Cholesterol 146 (50-200) mg/dL LDL Cholesterol, Calc 77 (60-180) mg/dL VLDL Cholesterol 13 (5-55) mg/dL HDL Cholesterol 56 (40-60) mg/dL Cholesterol/HDL Ratio 2.6 L (3.3-6.0) Urine Color Urine Appearance Urine pH (5.0-8.0) Ur Specific [place] (1.001-1.035) Urine Protein (NEGATIVE) mg/dL Urine Glucose (UA) (NEGATIVE) mg/dL Urine Ketones (NEGATIVE) mg/dL Urine Occult Blood (NEGATIVE) Urine Nitrite (NEGATIVE) Urine Bilirubin (NEGATIVE) Urine Urobilinogen (<2.0) EU/dL Ur Leukocyte Esterase (NEGATIVE) Urine RBC (0-2/HPF) Urine WBC (0-5/HPF) Ur Epithelial Cells (NONE-FEW) Urine Bacteria (NEGATIVE) Urine Mucus (NONE-MOD) Med Orders - Current: Current Medications Acetaminophen (Tylenol) 650 mg PO Q4H PRN PRN Reason: Pain (Mild 1-3)/fever Last Admin: 04/08/19 22:44 Dose: 650 mg Albuterol (Ventolin Hfa) 0 gm INH Q4H PRN PRN Reason: Shortness of Breath Calcium Citrate (Calcitrate + Vit D Cap (315 Mg/250 Units)) 1 each PO DAILY [facility] Last Admin: 04/09/19 08:29 Dose: Not Given HCTZ/Losartan Potassium (Hyzaar 50-12.5 Mg) 1 tab PO DAILY [facility] Last Admin: 04/09/19 08:19 Dose: 1 tab Losartan Potassium (Cozaar) 50 mg PO DAILY [facility] Last Admin: 04/09/19 08:27 Dose: Not Given Morphine Sulfate (Morphine) 2 mg IVPUSH Q2H PRN PRN Reason: Pain (severe 7-10) Stop: 04/09/19 12:07 Ondansetron HCl (Zofran) 4 mg IVPUSH Q4H PRN PRN Reason: Nausea Pantoprazole Sodium (Protonix) 40 mg PO DAILY [facility] Last Admin: 04/09/19 08:19 Dose: 40 mg Folbee Plus 1 each PO DAILY [facility] Last Admin: 04/09/19 08:27 Dose: Not Given Fluticasone/Salmeterol (Advair Diskus 250-50) 1 puff INH BID [facility] Last Admin: 04/09/19 08:26 Dose: Not Given Sodium Chloride (Saline Flush) 2.5 ml FLUSH ASDIRECTED PRN PRN Reason: Keep Vein Open Tramadol HCl (Ultram) 50 mg PO Q4H PRN PRN Reason: Pain Last Admin: 04/09/19 08:19 Dose: 50 mg Discontinued Medications Aspirin (Aspirin) 324 mg PO ONETIME ONE Stop: 04/08/19 09:55 Last Admin: 04/08/19 10:11 Dose: 324 mg - Exam General: Reports: Alert, Oriented, Cooperative Lungs: Reports: Clear to Auscultation, Normal Respiratory Effort Cardiovascular: Reports: Regular Rate, Regular Rhythm GI/Abdominal Exam: Normal Bowel Sounds, Soft, Non-Tender Back Exam: Reports: Normal Inspection, Full Range of Motion, Other (tenderness to L upper trap and L ribcage) Wound/Incisions: Reports: Healing Well Neurological: Reports: No New Focal Deficit Psy/Mental Status: Reports: Alert, Normal Affect, Normal Mood <Moreno Londono - Last Filed: 04/09/19 12:48> Discharge Summary - Hospital Course HPI Initial Comments: I have examined the patient independently of Katarina Garcia CNP. I have discussed the case with her. I have reviewed and agree with the examination and plan as outlined by her. Please see orders. - Patient Data Vitals - Most Recent: Last Vital Signs Temp 36.3 C 04/09/19 07:33 Pulse 56 L 04/09/19 07:33 Resp 14 04/09/19 04:00 BP 126/66 04/09/19 08:27 Pulse Ox 92 L 04/09/19 07:33 I&O - Last 24 hours: Intake & Output 04/08/19 04/09/19 04/09/19 22:59 06:59 14:59 Intake Total 200 700 540 Output Total 0 800 500 Balance 200 -100 40 Lab Results - Last 24 hrs: Laboratory Results - last 24 hr 04/08/19 04/08/19 04/09/19 Range/Units 16:14 22:14 05:18 Troponin I < 0.050 < 0.050 (0.000-0.056) ng/mL Triglycerides 67 (0-200) mg/dL Cholesterol 146 (50-200) mg/dL LDL Cholesterol, Calc 77 (60-180) mg/dL VLDL Cholesterol 13 (5-55) mg/dL HDL Cholesterol 56 (40-60) mg/dL Cholesterol/HDL Ratio 2.6 L (3.3-6.0) Med Orders - Current: Current Medications Discontinued Medications Acetaminophen (Tylenol) 650 mg PO Q4H PRN PRN Reason: Pain (Mild 1-3)/fever Last Admin: 04/08/19 22:44 Dose: 650 mg Albuterol (Ventolin Hfa) 0 gm INH Q4H PRN PRN Reason: Shortness of Breath Aspirin (Aspirin) 324 mg PO ONETIME ONE Stop: 04/08/19 09:55 Last Admin: 04/08/19 10:11 Dose: 324 mg Calcium Citrate (Calcitrate + Vit D Cap (315 Mg/250 Units)) 1 each PO DAILY [facility] Last Admin: 04/09/19 08:29 Dose: Not Given HCTZ/Losartan Potassium (Hyzaar 50-12.5 Mg) 1 tab PO DAILY [facility] Last Admin: 04/09/19 08:19 Dose: 1 tab Losartan Potassium (Cozaar) 50 mg PO DAILY [facility] Last Admin: 04/09/19 08:27 Dose: Not Given Morphine Sulfate (Morphine) 2 mg IVPUSH Q2H PRN PRN Reason: Pain (severe 7-10) Stop: 04/09/19 12:07 Ondansetron HCl (Zofran) 4 mg IVPUSH Q4H PRN PRN Reason: Nausea Pantoprazole Sodium (Protonix) 40 mg PO DAILY [facility] Last Admin: 04/09/19 08:19 Dose: 40 mg Folbee Plus 1 each PO DAILY [facility] Last Admin: 04/09/19 08:27 Dose: Not Given Fluticasone/Salmeterol (Advair Diskus 250-50) 1 puff INH BID [facility] Last Admin: 04/09/19 08:26 Dose: Not Given Sodium Chloride (Saline Flush) 2.5 ml FLUSH ASDIRECTED PRN PRN Reason: Keep Vein Open Tramadol HCl (Ultram) 50 mg PO Q4H PRN PRN Reason: Pain Last Admin: 04/09/19 08:19 Dose: 50 mg
== END 2019-04-09 10:05 | disposition home or self-care (01) ==
LOC: MW.ED 09:48 → MW.MS 11:38
PROVIDERS: ADMIT Internal Medicine; ATTEND Internal Medicine
DX: R07.89 Other chest pain (principal); M79.602 Pain in left arm; M25.512 Pain in left shoulder; I10 Essential (primary) hypertension; K21.9 Gastro-esophageal reflux disease without esophagitis; M19.90 Unspecified osteoarthritis, unspecified site; J44.9 Chronic obstructive pulmonary disease, unspecified; F17.210 Nicotine dependence, cigarettes, uncomplicated; Z88.1 Allergy status to other antibiotic agents; Z88.5 Allergy status to narcotic agent; Z79.899 Other long term (current) drug therapy; Z79.51 Long term (current) use of inhaled steroids
CPT/HCPCS: 36415; 71045; 80053; 80061; 81001; 83036; 84484; 85025; 85610; 87086; 93005; 99285; A9270; G0378

== ENCOUNTER 2024-07-08 23:34 | Emergency (ER) | payer MEDICARE ==
[2024-07-08 23:51] LABS: BASOPHILS ABSOLUTE AUTO 0.07 K/uL (0.00-0.20); BASOPHILS PERCENT AUTO 0.6 % (0.0-1.0); EOSINOPHILS ABSOLUTE AUTO 0.36 K/uL (0.00-0.45); EOSINOPHILS PERCENT AUTO 3.3 % (0.0-6.0); HEMATOCRIT 38.1 % (37.0-47.0); HEMOGLOBIN 12.8 g/dL (12.0-16.0); IMMATURE GRAN ABSOLUTE AUTO 0.04 K/uL (0.00-0.05); IMMATURE GRAN PERCENT AUTO 0.4 % (0.0-0.4); LYMPHOCYTES ABSOLUTE AUTO 2.22 K/uL (1.00-4.80); LYMPHOCYTES PERCENT AUTO 20.1 % (24.0-44.0); MEAN CORPUSCULAR HEMOGLOBIN 32.1 pg (28.0-32.0); MEAN CORPUSCULAR HGB CONC 33.6 g/dL (32.0-36.0); MEAN CORPUSCULAR VOLUME 95.5 fL (83.0-99.0); MEAN PLATELET VOLUME 8.4 fL (9.4-12.3); MONOCYTES ABSOLUTE AUTO 0.91 K/uL (0.00-0.80); MONOCYTES PERCENT AUTO 8.2 % (0.0-8.0); NEUTROPHILS ABSOLUTE AUTO 7.46 K/uL (1.80-7.70); NEUTROPHILS PERCENT AUTO 67.4 % (41.0-71.0); PLATELET COUNT,PLT 257 K/uL (150-400); RED BLOOD CELL COUNT 3.99 M/uL (4.10-5.30); WHITE BLOOD CELL COUNT,WBC 11.06 K/uL (3.9-11.3)
[2024-07-08] MEDS: Lidocaine 2% Viscous Solution 15 ML UD PO ONE (23:56)
[2024-07-08] MEDS: Aluminum Hydroxide/Magnesium Hydroxide/Simethicone Susp 30 ML Cup PO ONE (23:56)
[2024-07-08] MEDS: Sodium Chloride 0.9% 2.5 ML Syringe FLUSH PRN (23:58)
[2024-07-09 00:18] LABS: A/G RATIO 1.3 (0.9-1.6); ALBUMIN 3.7 g/dL (3.4-5.0); BILIRUBIN TOTAL 0.3 mg/dL (0.2-1.0); CALCIUM 9.3 mg/dL (8.5-10.1); CARBON DIOXIDE,CO2 28.8 mmol/L (21.0-32.0); CREATININE 0.7 mg/dL (0.6-1.0); EST CRCL DRUG DOSING (CG) 59.99 mL/min; POTASSIUM,K 4.1 mmol/L (3.5-5.1); PROTEIN TOTAL,TP 6.6 g/dL (6.4-8.2)
[2024-07-09] MEDS: Aspirin 81 MG Tab.Chew PO ONE (02:30)
[2024-07-09] MEDS: Sodium Chloride 0.9% 10 ML Syringe FLUSH PRN (02:31)
[2024-07-09 02:42] VITALS: BP 124/55; PULSE 87
== END 2024-07-09 02:41 | disposition home or self-care (01) ==
LOC: MW.ED 23:34
DX: R07.9 Chest pain, unspecified (principal); R10.13 Epigastric pain; I10 Essential (primary) hypertension; J44.9 Chronic obstructive pulmonary disease, unspecified; K21.9 Gastro-esophageal reflux disease without esophagitis; Z90.49 Acquired absence of other specified parts of digestive tract; Z79.899 Other long term (current) drug therapy; Z88.1 Allergy status to other antibiotic agents; Z88.5 Allergy status to narcotic agent; Z75.8 Other problems related to medical facilities and other health care
CPT/HCPCS: 36415; 71045; 80053; 80179; 83690; 84484; 85025; 93005; 99285; A9270; J3490; 93010; 99283

== ENCOUNTER 2024-08-07 09:24 | Day surgery (SDC) | payer MEDICARE ==
[2024-08-07] MEDS ORDERED: Lidocaine 2% 5 ML SDV ONE (09:51)
[2024-08-07] MEDS ORDERED: Propofol 200 MG/20 ML SDV ONE (09:52)
[2024-08-07] MEDS: Lactated Ringers 1,000 ML IV SCH (09:54)
[2024-08-07] MEDS ORDERED: Lactated Ringers 1,000 ML IV SCH (10:15)
[2024-08-07 14:00] VITALS: BP 119/56; PULSE 60
== END 2024-08-07 10:50 | disposition home or self-care (01) ==
LOC: MW.SDS 09:24
PROVIDERS: ATTEND Surgery
DX: K29.70 Gastritis, unspecified, without bleeding (principal); I10 Essential (primary) hypertension; J44.9 Chronic obstructive pulmonary disease, unspecified; G47.30 Sleep apnea, unspecified; F17.210 Nicotine dependence, cigarettes, uncomplicated; Z98.0 Intestinal bypass and anastomosis status; Z88.5 Allergy status to narcotic agent; Z88.8 Allergy status to other drugs, medicaments and biological substances; Z79.899 Other long term (current) drug therapy
CPT/HCPCS: 43235; J2704; J7120; J3490

== ENCOUNTER 2025-02-25 19:20 | Emergency (ER) | payer MEDICARE ==
[2025-02-25] MEDS ORDERED: Sodium Chloride 0.9% 2.5 ML Syringe FLUSH PRN (19:29)
[2025-02-25] MEDS ORDERED: Sodium Chloride 0.9% 10 ML Syringe FLUSH PRN (19:29)
[2025-02-25] MEDS: Albuterol/Ipratropium 3.0-0.5 MG/3 ML Neb Soln ONE (19:32)
[2025-02-25] MEDS: Albuterol/Ipratropium 3.0-0.5 MG/3 ML Neb Soln NEB ONE ×2 (19:32→19:37)
[2025-02-25] MEDS: methylPREDNISolone Sodium Succinate 125 MG/2 ML SDV IVPUSH ONE (19:32)
[2025-02-25 20:33] LABS: CORONAVIRUS COVID-19 NAA NEGATIVE (NEGATIVE); INFLUENZA A NAA NEGATIVE (NEGATIVE); INFLUENZA B NAA NEGATIVE (NEGATIVE)
[2025-02-25 21:05] VITALS: BP 110/55; PULSE 91
== END 2025-02-25 21:31 | disposition home or self-care (01) ==
LOC: MW.ED 19:20
DX: J44.1 Chronic obstructive pulmonary disease with (acute) exacerbation (principal); I10 Essential (primary) hypertension; J44.9 Chronic obstructive pulmonary disease, unspecified; K21.9 Gastro-esophageal reflux disease without esophagitis; Z90.49 Acquired absence of other specified parts of digestive tract; Z79.899 Other long term (current) drug therapy; Z88.5 Allergy status to narcotic agent; Z88.1 Allergy status to other antibiotic agents
CPT/HCPCS: 0240U; 71045; 93005; 96374; 99285; A9270; J2919; 93010; 99284

== ENCOUNTER 2025-03-28 03:01 | Emergency (ER) | payer MEDICARE ==
[2025-03-28 03:11] LABS: BASOPHILS ABSOLUTE AUTO 0.06 K/uL (0.00-0.20); BASOPHILS PERCENT AUTO 0.6 % (0.0-1.0); EOSINOPHILS ABSOLUTE AUTO 1.07 K/uL (0.00-0.45); EOSINOPHILS PERCENT AUTO 11.1 % (0.0-6.0); IMMATURE GRAN ABSOLUTE AUTO 0.03 K/uL (0.00-0.05); IMMATURE GRAN PERCENT AUTO 0.3 % (0.0-0.4); LYMPHOCYTES ABSOLUTE AUTO 2.97 K/uL (1.00-4.80); LYMPHOCYTES PERCENT AUTO 30.9 % (24.0-44.0); MEAN PLATELET VOLUME 8.3 fL (9.4-12.3); MONOCYTES ABSOLUTE AUTO 0.90 K/uL (0.00-0.80); MONOCYTES PERCENT AUTO 9.4 % (0.0-8.0); NEUTROPHILS ABSOLUTE AUTO 4.57 K/uL (1.80-7.70); NEUTROPHILS PERCENT AUTO 47.7 % (41.0-71.0); NRBC ABSOLUTE 0.00 K/uL (0.00-0.02); NRBC PERCENT 0.0 /100WBC (0.0-0.2); PLATELET COUNT,PLT 258 K/uL (150-400); RED BLOOD CELL COUNT 4.18 M/uL (4.10-5.30); WHITE BLOOD CELL COUNT,WBC 9.60 K/uL (3.9-11.3)
[2025-03-28] MEDS: methylPREDNISolone Sodium Succinate 125 MG/2 ML SDV IVPUSH ONE (03:12)
[2025-03-28 03:14] LABS: BASE EXCESS VENOUS 3.0 (-2.0-3.0); BICARBONATE,VENOUS 30.0 mEq/L (22-29); PCO2 VENOUS 54.0 mmHG (41-51); PH,VENOUS 7.35 (7.32-7.43); PO2 VENOUS 52.0 mmHG (35-45)
[2025-03-28 03:25] LABS: INR < 0.93 (0.86-1.11); PTT,PARTIAL THROMBOPLSTIN TIME 24.6 SEC (23.9-30.7)
[2025-03-28] MEDS: Magnesium Sulfate 2 GM/50 mL 2 GM in Premix Bag 1 BAG IV ONE (03:34)
[2025-03-28 03:45] LABS: A/G RATIO 1.4 (0.9-1.6); ALANINE AMINOTRANSFERASE,ALT 56 IU/L (14-63); ASPARTATE AMNIOTRANSFERASE,AST 37 IU/L (15-37); BILIRUBIN TOTAL 0.1 mg/dL (0.2-1.0); BLOOD UREA NITROGEN,BUN 18 mg/dL (7.0-18.0); CARBON DIOXIDE,CO2 30.3 mmol/L (21.0-32.0); CHLORIDE,CL 104 mmol/L (98-107); CREATININE 0.8 mg/dL (0.6-1.0); ESTIMATED GFR 79 mL/min (>60); GLUCOSE RANDOM 132 mg/dL (74-106); POTASSIUM,K 4.2 mmol/L (3.5-5.1); PRO B-TYPE NATRIUR PEPT,BNPPRO 146 pg/mL (0-125); PROTEIN TOTAL,TP 7.0 g/dL (6.4-8.2); SODIUM,NA 141 mmol/L (136-145)
[2025-03-28] MEDS ORDERED: LORazepam 2 MG/ML SDV IVPUSH PRN (03:45)
[2025-03-28 04:00] LABS: BICARBONATE,VENOUS 31.0 mEq/L (22-29); PCO2 VENOUS 53.0 mmHG (41-51); PH,VENOUS 7.38 (7.32-7.43); PO2 VENOUS 40.0 mmHG (35-45)
[2025-03-28 04:01] LABS: BASE EXCESS VENOUS 5.0 (-2.0-3.0)
[2025-03-28 05:11] VITALS: BP 139/67; PULSE 86
[2025-03-28 05:13] LABS: BASE EXCESS VENOUS 1.5 (-2.0-3.0); BICARBONATE,VENOUS 29.0 mEq/L (22-29); PCO2 VENOUS 61.0 mmHG (41-51); PH,VENOUS 7.29 (7.32-7.43); PO2 VENOUS 29.0 mmHG (35-45)
== END 2025-03-28 05:35 | disposition left against medical advice (07) ==
LOC: MW.ED 03:01
DX: J96.01 Acute respiratory failure with hypoxia (principal); J44.1 Chronic obstructive pulmonary disease with (acute) exacerbation; R05.1 Acute cough; I10 Essential (primary) hypertension; Z88.1 Allergy status to other antibiotic agents; Z88.8 Allergy status to other drugs, medicaments and biological substances; Z79.899 Other long term (current) drug therapy; Z90.49 Acquired absence of other specified parts of digestive tract
CPT/HCPCS: 36415; 71045; 80053; 82803; 83605; 83690; 83735; 83880; 84484; 85025; 85379; 85610; 85730; 93005; 94660; 96361; 96365; 96375; 99285; A9270; J2919; J3475; J7030; 93010; 99284